=== PATIENT | male | born 1955 | race Caucasian/White ===

== ENCOUNTER 2020-09-12 09:25 | Inpatient (IN) | payer OTHER ==
[~2020-09-12] VITALS: Ht 177.8 cm; Wt 87.3 kg
[~2020-09-12 09:25] MED LIST: ASPIRIN CHEWABL81 MG PO; ASPIRIN EC81 MG PO; CATAPRES0.1 MG PO; CEFDINIR300 M1 PO; COZAAR50 MG PO; CRESTOR10 MG PO; DIAZEPAM 5MG TAB5 MG PO; FLOMAX0.4 MG PO; FLONASE ALLER15.8 ML; FOLIC ACID1 MG PO; IMDUR 30MG TABL30 MG PO; INDERAL LA160 MG PO; LASIX20 MG PO; LEXAPRO20 MG PO; LISINOPRIL-HCT1 EAC1 PO; METFORMIN HCL500 MG PO; METOPROLOL SUCC50 MG PO; METRONIDAZOLE500 MG PO; NEXIUM 24HR22.3 MG PO; NEXIUM 40MG CAP40 MG PO; NORCO 5-325 TA1 EACH PO; NORVASC5 MG PO; ONDANSETRON ODT4 MG SL; PERCOCET 5-3251 EACH PO; PRILOSEC20 MG PO; PROAIR HFA8.5 GM PO; STIOLTO RESPIMAT PO; SYMBICORT 80-10.2 GM INH; TOPROL XL 50 MG50 MG PO; TRAZODONE 100M100 MG PO; VANCOMYCIN HCL125 MG PO; ZESTORETIC 20-1 EACH PO; ZYRTEC10 M3 PO
[2020-09-12 11:08] LABS: BASOPHIL 0.1 % (0-2); EOSINOPHIL 0 % (0-5); HGB 13.1 g/dl (13.2-18.0); MCH 31.3 pg (25.0-31.0); MCHC 34.5 g/dL (32.0-36.0); MCV 90.7 fL (78.0-100.0); MONOCYTE 6.2 % (0-12); MPV 11.8 fL (6.0-9.5); NEUTROPHIL 89.9 % (41-80); NRBC 0; PLT 122 K/uL (150-400); RBC 4.19 M/uL (4.70-6.00); RDW 15.1 % (11.5-14.0); WBC 15.4 K/uL (4.0-10.5)
[2020-09-12 11:15] LABS: INR 0.98 (0.9-1.2); PROTHROMBIN TIME 12.3 SECONDS (11.4-13.6)
[2020-09-12 12:05] LABS: IRON % SATURATION 27.1 %SAT (20-50)
[2020-09-12 12:12] LABS: PRO-BNP 465 pg/mL (<125)
[2020-09-12 12:19] LABS: PTT 19.3 SECONDS (22.2-34.7)
[2020-09-12 14:21] LABS: ALBUMIN 3.8 g/dL (3.4-5.0); ALKALINE PHOSHATASE 81 U/L (46-116); ALT 89 U/L (16-63); AST 97 U/L (15-37); BILIRUBIN - TOTAL 0.9 mg/dL (0.2-1.0); BUN 50 mg/dL (7-18); BUN/CREAT RATIO (CALC) 29.1 RATIO; CHLORIDE 96 mmol/L (98-107); CO2 (BICARBONATE) 23 mmol/L (21-32); CPK 191 U/L (39-308); CREATININE 1.72 mg/dL (0.67-1.17); GLOBULIN (CALCULATION) 3.8 g/dL; GLUCOSE 213 mg/dL (74-106); LDH 325 U/L (85-227); MAGNESIUM 1.7 mg/dL (1.8-2.4); POTASSIUM 4.9 mmol/L (3.5-5.1); TOTAL PROTEIN 7.6 g/dL (6.4-8.2)
[2020-09-12 14:25] LABS: C-REACTIVE PROTEIN > 18.00 mg/dL (<=0.90)
[2020-09-12 14:52] LABS: CPK 195 U/L (39-308); LIPASE 962 U/L (73-393)
[2020-09-12] MEDS ORDERED: THEOPHYLLINE400 MG PO (16:36)
[2020-09-12] MEDS ORDERED: ROBAXIN750 MG PO (16:44)
[2020-09-12] MEDS ORDERED: FLOMAX0.4 MG PO (16:59)
[2020-09-12] MEDS ORDERED: BREO ELLIPTA 11 EACH INH (17:00)
[2020-09-12] MEDS ORDERED: SPIRIVA RESPIMAT4 G1 INH (17:01)
[2020-09-12 17:41] LABS: BASOPHIL 0.2 % (0-2); EOSINOPHIL 0 % (0-5); HCT 34.6 % (42.0-52.0); HGB 11.9 g/dl (13.2-18.0); LYMPHOCYTE 5.7 % (15-48); MCH 31.2 pg (25.0-31.0); MCHC 34.4 g/dL (32.0-36.0); MCV 90.8 fL (78.0-100.0); MONOCYTE 7.4 % (0-12); NEUTROPHIL 86.2 % (41-80); NRBC 0; RBC 3.81 M/uL (4.70-6.00); RDW 15.1 % (11.5-14.0)
[2020-09-12 17:42] LABS: PLT 93 K/uL (150-400)
[2020-09-12 17:56] LABS: IRON % SATURATION 18.8 %SAT (20-50)
[2020-09-12 18:07] LABS: PRO-BNP 787 pg/mL (<125)
[2020-09-12 18:23] LABS: BUN/CREAT RATIO (CALC) 32.9 RATIO; CREATININE 1.7 mg/dL (0.67-1.17); POTASSIUM 4.4 mmol/L (3.5-5.1)
[2020-09-13 06:41] LABS: BASOPHIL 0.1 % (0-2); EOSINOPHIL 0 % (0-5); HCT 30.4 % (42.0-52.0); HGB 10.4 g/dl (13.2-18.0); LYMPHOCYTE 9.3 % (15-48); MCHC 34.2 g/dL (32.0-36.0); MCV 90.5 fL (78.0-100.0); MONOCYTE 6.7 % (0-12); MPV 11.5 fL (6.0-9.5); NEUTROPHIL 83.2 % (41-80); NRBC 0; RBC 3.36 M/uL (4.70-6.00); RDW 15.2 % (11.5-14.0); WBC 12.2 K/uL (4.0-10.5)
[2020-09-13 06:47] LABS: PLT 100 K/uL (150-400)
[2020-09-13 06:51] LABS: INR 1.04 (0.9-1.2); PROTHROMBIN TIME 12.9 SECONDS (11.4-13.6)
[2020-09-13 06:52] LABS: PTT 31.1 SECONDS (22.2-34.7)
[2020-09-13 07:09] LABS: ALBUMIN 3.1 g/dL (3.4-5.0); BILIRUBIN - TOTAL 0.5 mg/dL (0.2-1.0); BUN/CREAT RATIO (CALC) 35.2 RATIO; CREATININE 1.42 mg/dL (0.67-1.17); GLOBULIN (CALCULATION) 2.9 g/dL; POTASSIUM 4.1 mmol/L (3.5-5.1)
[2020-09-13 07:10] LABS: MAGNESIUM 2.6 mg/dL (1.8-2.4)
[2020-09-13 11:46] LABS: BILIRUBIN 1+ mg/dL (NEGATIVE); BLOOD 1+ Ery/uL (NEGATIVE); CLARITY CLEAR (CLEAR); COLOR YELLOW (YELLOW); GLUCOSE (U) NORMAL (NORMAL); LEUKOCYTES NEGATIVE Leu/uL (NEGATIVE); NITRITE NEGATIVE (NEGATIVE); PROTEIN TRACE (LOW) mg/dL (NEGATIVE); UROBILINOGEN 0.2 mg/dL (0.2-1.0)
[2020-09-13 12:02] LABS: AMPHETAMINES NEGATIVE (NEGATIVE); BARBITURATES POSITIVE (NEGATIVE); ECSTASY (MDMA) NEGATIVE (NEGATIVE); MARIJUANA (THC) NEGATIVE (NEGATIVE); METHADONE NEGATIVE (NEGATIVE); OPIATES NEGATIVE (NEGATIVE); OXYCODONE NEGATIVE (NEGATIVE)
[2020-09-13 12:30] LABS: BACTERIA TRACE; SQUAMOUS EPITHELIAL CELLS RARE; URINARY WBC RARE
[2020-09-13 12:31] LABS: MUCOUS TRACE; TRANSITIONAL EPITHELIAL CELLS RARE
[2020-09-14 03:58] LABS: BASOPHIL 0.3 % (0-2); EOSINOPHIL 0.1 % (0-5); HCT 29.3 % (42.0-52.0); HGB 9.6 g/dl (13.2-18.0); LYMPHOCYTE 14.4 % (15-48); MCHC 32.8 g/dL (32.0-36.0); MCV 94.5 fL (78.0-100.0); MONOCYTE 5.9 % (0-12); MPV 11.3 fL (6.0-9.5); NEUTROPHIL 78.6 % (41-80); NRBC 0; PLT 100 K/uL (150-400); RDW 15.7 % (11.5-14.0); WBC 12.1 K/uL (4.0-10.5)
[2020-09-14 04:20] LABS: ALBUMIN 2.9 g/dL (3.4-5.0); BILIRUBIN - TOTAL 0.4 mg/dL (0.2-1.0); CREATININE 1.02 mg/dL (0.67-1.17); GLOBULIN (CALCULATION) 3.6 g/dL; POTASSIUM 3.7 mmol/L (3.5-5.1); TOTAL PROTEIN 6.5 g/dL (6.4-8.2)
[2020-09-15 04:10] LABS: BASOPHIL 0.2 % (0-2); EOSINOPHIL 0.2 % (0-5); HCT 28.3 % (42.0-52.0); HGB 9.6 g/dl (13.2-18.0); LYMPHOCYTE 18.8 % (15-48); MCH 31.5 pg (25.0-31.0); MCHC 33.9 g/dL (32.0-36.0); MCV 92.8 fL (78.0-100.0); MONOCYTE 7.4 % (0-12); MPV 11.7 fL (6.0-9.5); NRBC 0; PLT 104 K/uL (150-400); RBC 3.05 M/uL (4.70-6.00); RDW 15.2 % (11.5-14.0); WBC 9.2 K/uL (4.0-10.5)
[2020-09-15 04:51] LABS: ALBUMIN 2.4 g/dL (3.4-5.0); BILIRUBIN - TOTAL 0.3 mg/dL (0.2-1.0); BUN/CREAT RATIO (CALC) 16.5 RATIO; CREATININE 0.85 mg/dL (0.67-1.17); GLOBULIN (CALCULATION) 2.8 g/dL; POTASSIUM 3.3 mmol/L (3.5-5.1); TOTAL PROTEIN 5.2 g/dL (6.4-8.2)
[2020-09-15 04:52] LABS: MAGNESIUM 1.4 mg/dL (1.8-2.4)
[2020-09-16 06:29] LABS: BASOPHIL 0.4 % (0-2); EOSINOPHIL 0.6 % (0-5); HCT 29.4 % (42.0-52.0); HGB 9.6 g/dl (13.2-18.0); LYMPHOCYTE 18.5 % (15-48); MCH 31.5 pg (25.0-31.0); MCHC 32.7 g/dL (32.0-36.0); MCV 96.4 fL (78.0-100.0); MONOCYTE 9.6 % (0-12); MPV 11.8 fL (6.0-9.5); NEUTROPHIL 70.2 % (41-80); NRBC 0; PLT 108 K/uL (150-400); RBC 3.05 M/uL (4.70-6.00); RDW 15.4 % (11.5-14.0); WBC 6.8 K/uL (4.0-10.5)
[2020-09-16 07:14] LABS: ALBUMIN 2.2 g/dL (3.4-5.0); BILIRUBIN - TOTAL 0.3 mg/dL (0.2-1.0); BUN/CREAT RATIO (CALC) 6.4 RATIO; CREATININE 0.78 mg/dL (0.67-1.17); GLOBULIN (CALCULATION) 2.9 g/dL; MAGNESIUM 1.5 mg/dL (1.8-2.4); PHOSPHORUS 1.3 mg/dL (2.6-4.7); TOTAL PROTEIN 5.1 g/dL (6.4-8.2)
[2020-09-17 08:02] LABS: BASOPHIL 0.2 % (0-2); EOSINOPHIL 0.5 % (0-5); HCT 28.5 % (42.0-52.0); HGB 9.5 g/dl (13.2-18.0); LYMPHOCYTE 21.5 % (15-48); MCH 30.5 pg (25.0-31.0); MCHC 33.3 g/dL (32.0-36.0); MCV 91.6 fL (78.0-100.0); MONOCYTE 12.2 % (0-12); MPV 10.9 fL (6.0-9.5); NEUTROPHIL 64.6 % (41-80); NRBC 0; PLT 169 K/uL (150-400); RBC 3.11 M/uL (4.70-6.00); RDW 15.2 % (11.5-14.0); WBC 8.3 K/uL (4.0-10.5)
[2020-09-17 08:33] LABS: ALBUMIN 2.2 g/dL (3.4-5.0); BILIRUBIN - TOTAL 0.2 mg/dL (0.2-1.0); CREATININE 0.8 mg/dL (0.67-1.17); GLOBULIN (CALCULATION) 3.8 g/dL; POTASSIUM 3.7 mmol/L (3.5-5.1)
[2020-09-18 06:41] LABS: BASOPHIL 0.6 % (0-2); EOSINOPHIL 0.8 % (0-5); HCT 28.7 % (42.0-52.0); HGB 9.5 g/dl (13.2-18.0); LYMPHOCYTE 25.3 % (15-48); MCHC 33.1 g/dL (32.0-36.0); MCV 93.8 fL (78.0-100.0); MONOCYTE 17.1 % (0-12); MPV 11.8 fL (6.0-9.5); NEUTROPHIL 54.9 % (41-80); NRBC 0; PLT 160 K/uL (150-400); RBC 3.06 M/uL (4.70-6.00); RDW 15.5 % (11.5-14.0); WBC 6.4 K/uL (4.0-10.5)
[2020-09-18 07:02] LABS: ALBUMIN 2.2 g/dL (3.4-5.0); BILIRUBIN - TOTAL 0.3 mg/dL (0.2-1.0); BUN/CREAT RATIO (CALC) 5.5 RATIO; CREATININE 0.73 mg/dL (0.67-1.17); GLOBULIN (CALCULATION) 4.1 g/dL; POTASSIUM 4.3 mmol/L (3.5-5.1); TOTAL PROTEIN 6.3 g/dL (6.4-8.2)
[2020-09-20 07:30] LABS: BASOPHIL 0.5 % (0-2); EOSINOPHIL 0.5 % (0-5); HCT 28.6 % (42.0-52.0); HGB 9.6 g/dl (13.2-18.0); LYMPHOCYTE 22.4 % (15-48); MCH 30.7 pg (25.0-31.0); MCHC 33.6 g/dL (32.0-36.0); MCV 91.4 fL (78.0-100.0); MONOCYTE 13.2 % (0-12); NEUTROPHIL 62.6 % (41-80); NRBC 0; PLT 319 K/uL (150-400); RBC 3.13 M/uL (4.70-6.00); WBC 6.5 K/uL (4.0-10.5)
[2020-09-20 08:05] LABS: ALBUMIN 2.2 g/dL (3.4-5.0); ALKALINE PHOSHATASE 81 U/L (46-116); ALT 36 U/L (16-63); AST 25 U/L (15-37); BILIRUBIN - TOTAL 0.3 mg/dL (0.2-1.0); BUN 6 mg/dL (7-18); BUN/CREAT RATIO (CALC) 7.5 RATIO; C-REACTIVE PROTEIN >18.00 mg/dL (<=0.90); CHLORIDE 103 mmol/L (98-107); CO2 (BICARBONATE) 22 mmol/L (21-32); GLOBULIN (CALCULATION) 4.1 g/dL; GLUCOSE 111 mg/dL (74-106); LIPASE 72 U/L (73-393); POTASSIUM 3.6 mmol/L (3.5-5.1); TOTAL PROTEIN 6.3 g/dL (6.4-8.2)
[2020-09-21 06:27] LABS: BASOPHIL 0.9 % (0-2); EOSINOPHIL 0.4 % (0-5); HCT 26.6 % (42.0-52.0); HGB 8.9 g/dl (13.2-18.0); LYMPHOCYTE 27.1 % (15-48); MCH 30.9 pg (25.0-31.0); MCHC 33.5 g/dL (32.0-36.0); MCV 92.4 fL (78.0-100.0); MPV 11.8 fL (6.0-9.5); NEUTROPHIL 60.6 % (41-80); NRBC 0; RBC 2.88 M/uL (4.70-6.00); RDW 15.4 % (11.5-14.0)
[2020-09-21 06:52] LABS: ALBUMIN 2.2 g/dL (3.4-5.0); BILIRUBIN - TOTAL 0.3 mg/dL (0.2-1.0); BUN/CREAT RATIO (CALC) 7.4 RATIO; CREATININE 0.81 mg/dL (0.67-1.17); GLOBULIN (CALCULATION) 4.3 g/dL; POTASSIUM 3.7 mmol/L (3.5-5.1); TOTAL PROTEIN 6.5 g/dL (6.4-8.2)
[2020-09-21 07:00] LABS: PLT 275 K/uL (150-400)
[2020-09-22 06:29] LABS: BASOPHIL 0.5 % (0-2); EOSINOPHIL 0.4 % (0-5); HCT 28.9 % (42.0-52.0); HGB 9.7 g/dl (13.2-18.0); LYMPHOCYTE 19.5 % (15-48); MCH 30.8 pg (25.0-31.0); MCHC 33.6 g/dL (32.0-36.0); MCV 91.7 fL (78.0-100.0); MONOCYTE 8.5 % (0-12); MPV 10.7 fL (6.0-9.5); NEUTROPHIL 70.3 % (41-80); NRBC 0; PLT 438 K/uL (150-400); RBC 3.15 M/uL (4.70-6.00); RDW 15.4 % (11.5-14.0); WBC 9.9 K/uL (4.0-10.5)
[2020-09-22 06:45] LABS: ALBUMIN 2.3 g/dL (3.4-5.0); BILIRUBIN - TOTAL 0.3 mg/dL (0.2-1.0); BUN/CREAT RATIO (CALC) 7.4 RATIO; CREATININE 0.81 mg/dL (0.67-1.17); GLOBULIN (CALCULATION) 4.2 g/dL; POTASSIUM 3.5 mmol/L (3.5-5.1); TOTAL PROTEIN 6.5 g/dL (6.4-8.2)
[2020-09-23 07:13] LABS: EOSINOPHIL 0.2 % (0-5); HCT 32.7 % (42.0-52.0); MCHC 33.6 g/dL (32.0-36.0); MCV 92.1 fL (78.0-100.0); MONOCYTE 6.3 % (0-12); MPV 10.6 fL (6.0-9.5); NEUTROPHIL 73.6 % (41-80); NRBC 0; PLT 476 K/uL (150-400); RBC 3.55 M/uL (4.70-6.00); RDW 15.4 % (11.5-14.0); WBC 10.3 K/uL (4.0-10.5)
[2020-09-23 07:34] LABS: ALBUMIN 2.5 g/dL (3.4-5.0); BILIRUBIN - TOTAL 0.3 mg/dL (0.2-1.0); BUN/CREAT RATIO (CALC) 6.6 RATIO; CREATININE 0.76 mg/dL (0.67-1.17); GLOBULIN (CALCULATION) 4.7 g/dL; POTASSIUM 3.8 mmol/L (3.5-5.1); TOTAL PROTEIN 7.2 g/dL (6.4-8.2)
[2020-09-23 10:29] LABS: C-REACTIVE PROTEIN 8.1 mg/dL (<=0.90)
== END 2020-09-23 13:25 | disposition home or self-care (01) | DRG 896 ==
LOC: FER 09:25 → FMS 14:36 → FICU 14:36 → FMS 09-18 08:34
PROVIDERS: Emergency Medicine; Internal Medicine; ADMIT Internal Medicine
PROC: HZ2ZZZZ Detoxification Services for Substance Abuse Treatment (ICD-10-PCS; principal; 2020-09-12)
DX: F10.231 Alcohol dependence with withdrawal delirium (principal); K85.20 Alcohol induced acute pancreatitis without necrosis or infection; R65.11 Systemic inflammatory response syndrome (SIRS) of non-infectious origin with acute organ dysfunction; R65.10 Systemic inflammatory response syndrome (SIRS) of non-infectious origin without acute organ dysfunction; A04.72 Enterocolitis due to Clostridium difficile, not specified as recurrent; K86.3 Pseudocyst of pancreas; N17.9 Acute kidney failure, unspecified; E87.2 Acidosis; E87.6 Hypokalemia; E83.42 Hypomagnesemia; E11.9 Type 2 diabetes mellitus without complications; F17.200 Nicotine dependence, unspecified, uncomplicated; I10 Essential (primary) hypertension; E78.5 Hyperlipidemia, unspecified; K21.9 Gastro-esophageal reflux disease without esophagitis; M19.90 Unspecified osteoarthritis, unspecified site; J44.9 Chronic obstructive pulmonary disease, unspecified; N40.0 Benign prostatic hyperplasia without lower urinary tract symptoms; Z71.6 Tobacco abuse counseling; Z79.82 Long term (current) use of aspirin; Z79.899 Other long term (current) drug therapy
CPT/HCPCS: 36415; 70450; 71045; 74183; 80048; 80053; 80198; 80305; 81001; 82150; 82378; 82550; 82607; 82728; 82746; 82962; 83540; 83550; 83605; 83615; 83690; 83735; 83880; 84100; 84145; 84443; 84484; 85025; 85610; 85730; 86140; 86301; 87040; 87324; 87449; 87493; 93005; 94010; 94640; 97161; 97165; A9579; C9113; G0480; J1650; J2060; J2270; J2405; J2560; J3411; J3475; J3480; J7030; J7040; U0002

== ENCOUNTER 2021-08-23 19:57 | Emergency (ER) | payer OTHER ==
[~2021-08-23 19:57] MED LIST changes: +BREO ELLIPTA 11 EACH INH; +ROBAXIN750 MG PO; +SPIRIVA RESPIMAT4 G1 INH; +THEOPHYLLINE400 MG PO
[2021-08-23 21:18] LABS: BASOPHIL 0.3 % (0-2); EOSINOPHIL 0.1 % (0-5); HCT 39.8 % (42.0-52.0); HGB 13.2 g/dl (13.2-18.0); LYMPHOCYTE 8.3 % (15-48); MCH 30.1 pg (25.0-31.0); MCHC 33.2 g/dL (32.0-36.0); MCV 90.9 fL (78.0-100.0); MONOCYTE 2.7 % (0-12); MPV 10.1 fL (6.0-9.5); NEUTROPHIL 88.1 % (41-80); NRBC 0; PLT 222 K/uL (150-400); RBC 4.38 M/uL (4.70-6.00); RDW 14.8 % (11.5-14.0)
[2021-08-23 21:35] LABS: BILIRUBIN NEGATIVE (NEGATIVE); BLOOD NEGATIVE Ery/uL (NEGATIVE); CLARITY CLEAR (CLEAR); COLOR YELLOW (YELLOW); GLUCOSE (U) TRACE mg/dL (NORMAL); LEUKOCYTES NEGATIVE Leu/uL (NEGATIVE); NITRITE NEGATIVE (NEGATIVE); PROTEIN NEGATIVE (NEGATIVE); SPECIFIC GRAVITY 1.025 (1.001-1.030); UROBILINOGEN 0.2 mg/dL (0.2-1.0)
[2021-08-23 21:48] LABS: ALBUMIN 3.8 g/dL (3.4-5.0); BILIRUBIN - TOTAL 0.2 mg/dL (0.2-1.0); BUN/CREAT RATIO (CALC) 15.5 RATIO; CREATININE 0.71 mg/dL (0.67-1.17); GLOBULIN (CALCULATION) 3.4 g/dL; POTASSIUM 3.9 mmol/L (3.5-5.1); TOTAL PROTEIN 7.2 g/dL (6.4-8.2)
[2021-08-23 21:53] LABS: LACTIC ACID 3.3 mmol/L (0.4-1.9)
[2021-08-23 22:07] LABS: CORONAVIRUS 2019 SARS-COV-2 NEGATIVE (NEGATIVE); INFLUENZA A NAA NEGATIVE (NEGATIVE)
== END 2021-08-23 21:35 | disposition other institution (70) ==
LOC: FER 19:57
PROVIDERS: Emergency Medicine Emergency Medical Services
DX: S06.6X9A Traumatic subarachnoid hemorrhage with loss of consciousness of unspecified duration, initial encounter (principal); S02.0XXA Fracture of vault of skull, initial encounter for closed fracture; I10 Essential (primary) hypertension; E11.9 Type 2 diabetes mellitus without complications; J44.9 Chronic obstructive pulmonary disease, unspecified; F17.200 Nicotine dependence, unspecified, uncomplicated; E66.9 Obesity, unspecified; Z20.822 Contact with and (suspected) exposure to COVID-19; Z79.82 Long term (current) use of aspirin; Z79.84 Long term (current) use of oral hypoglycemic drugs; W19.XXXA Unspecified fall, initial encounter; Y92.89 Other specified places as the place of occurrence of the external cause
CPT/HCPCS: 31500; 36415; 70450; 70486; 71045; 71250; 72125; 72128; 72131; 80053; 81003; 82550; 83605; 83880; 84145; 84484; 85025; 87088; 93005; 96374; G0480; J1953; J2060; J2704; J7030; U0002